=== PATIENT | female | born 1995 | race Caucasian/White ===

== ENCOUNTER 2019-02-04 05:35 | Emergency (ER) | payer OTHER ==
[~2019-02-04] VITALS: Ht 154.9 cm; Wt 60.9 kg
--- NOTE | 2019-02-04 05:53 | NUR ---
assessment made. PA at bedside.
[2019-02-04] MEDS ORDERED: KETOROLAC 30 MG/1 ML IM ONE (06:00)
[2019-02-04] MEDS ORDERED: KETOROLAC 30 MG/1 ML ONE (06:03)
--- NOTE | 2019-02-04 06:13 | NUR ---
back from x ray. medicated for pain. awaiting results.
[2019-02-04 06:30] LABS: MEAN CORPUSCULAR HEMOGLOBIN 32.8 pg (27.0-34.8); MEAN CORPUSCULAR HGB CONC 33.1 g/dL (32.4-35.8); MEAN CORPUSCULAR VOLUME 98.9 fL (80-100); MEAN PLATELET VOLUME 7.6 fL (7.4-10.4); PLATELET COUNT 164 x10^3/uL (130-400); RED BLOOD COUNT 4.13 x10^6/uL (3.82-5.3); RED CELL DISTRIBUTION WIDTH 14.4 % (9.6-15.2)
--- NOTE | 2019-02-04 06:51 | NUR ---
report to EZIO Gorman.
--- NOTE | 2019-02-04 06:52 | NUR ---
REPORT RECEIVED FROM EZIO ACOSTA.
[2019-02-04 06:54] LABS: RAPID INFLUENZA A Negative (Negative); RAPID INFLUENZA B Negative (Negative)
[2019-02-04 07:09] LABS: MD YES
[2019-02-04 07:15] LABS: BAND#(MANUAL) 0.43 x10^3/uL; BANDS%(MANUAL) 7 % (0-7); BASOS#(MANUAL) 0.06 x10^3/uL (0-0.1); BASOS% (MANUAL) 1 % (0-1); MONOS#(MANUAL) 0.43 x10^3/uL (0.3-2.7); MONOS% (MANUAL) 7 % (2-9); SEGS% (MANUAL) 36 % (42-75)
[2019-02-04 07:16] LABS: <PLATELET ESTIMATE> ADEQUATE; <PLT MORPHOLOGY> NORMAL PLT MORPH; <RBC MORPHOLOGY> NORMAL
[2019-02-04 07:26] LABS: LYMPH#(MANUAL) 1.95 x10^3/uL (1-3.4); LYMPHS% (MANUAL) 32 % (22-44); REACTIVE LYMPHS # (MANUAL) 1.04 x10^3/uL (0-0); REACTIVE LYMPHS % (MANUAL) 17 % (0-0)
[2019-02-04 07:46] VITALS: BP 129/84
--- NOTE | 2019-02-04 07:46 | NUR ---
PT RESTING ON CARRIE. RICH. VSS. AWARE OF POC. DENIES NEEDS.
--- NOTE | 2019-02-04 08:43 | NUR ---
PA AT BEDSIDE UPDATING PT ON POC.
== END 2019-02-04 08:59 | disposition home or self-care (01) ==
LOC: ED 06:26
DX: B27.00 Gammaherpesviral mononucleosis without complication (principal)
CPT/HCPCS: 36415; 71046; 85025; 86308; 87400; 93005; 96372; 99284; J1885

== ENCOUNTER 2019-02-07 07:52 | Emergency (ER) | payer OTHER ==
[~2019-02-07] VITALS: Ht 154.9 cm; Wt 59.9 kg
[2019-02-07 07:55] VITALS: BP 117/77
--- NOTE | 2019-02-07 07:58 | NUR ---
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 PATIENT AMBUALTED TO ROOM WITH A STEADY GAIT.
--- NOTE | 2019-02-07 08:06 | NUR ---
PT HAS CO SORE THROAT, COUGHING, AND SNEEZING. PT STATES SHE WAS DIAGNOSED W MONO ON TUESDAY. PT ALSO STATES SHE THINKS HER EYES ARE YELLOW AND URINE IS DARKER EVEN THOUGH SHE DRINKS WATER ALOT. PA AT BEDSIDE. PT IS NOT IN ANY DISTRESS.
[2019-02-07 08:41] LABS: MD YES; MEAN CORPUSCULAR HEMOGLOBIN 32.2 pg (27.0-34.8); MEAN CORPUSCULAR HGB CONC 33.2 g/dL (32.4-35.8); MEAN CORPUSCULAR VOLUME 96.9 fL (80-100); MEAN PLATELET VOLUME 7.1 fL (7.4-10.4); PLATELET COUNT 207 x10^3/uL (130-400); RED BLOOD COUNT 4.14 x10^6/uL (3.82-5.3); RED CELL DISTRIBUTION WIDTH 14.1 % (9.6-15.2)
[2019-02-07 08:47] LABS: HCG UR SG 1.021 (1.003-1.030); MICROSCOPIC INDICATED
--- NOTE | 2019-02-07 08:49 | NUR ---
REPORT FROM EZIO ABRAHAM
[2019-02-07 08:52] LABS: ALANINE AMINOTRANSFERASE 415 U/L (12-78); ALBUMIN 3.3 g/dL (3.4-5.0); ANION GAP 8 mmol/L (5-15); CALCIUM 8.4 mg/dL (8.5-10.1); CHLORIDE 110 mmol/L (98-107); CREATININE 0.74 mg/dL (0.55-1.02)
[2019-02-07 08:54] LABS: ALKALINE PHOSPHATASE 221 U/L (45-117); BILIRUBIN,TOTAL 2.7 mg/dL (0.2-1.0); TOTAL PROTEIN 6.9 g/dL (6.4-8.2)
[2019-02-07 08:57] LABS: <PLATELET ESTIMATE> ADEQUATE; <PLT MORPHOLOGY> NORMAL PLT MORPH; BAND#(MANUAL) 0.28 x10^3/uL; BANDS%(MANUAL) 2 % (0-7); BASOS#(MANUAL) 0.14 x10^3/uL (0-0.1); BASOS% (MANUAL) 1 % (0-1); LYMPH#(MANUAL) 4.83 x10^3/uL (1-3.4); LYMPHS% (MANUAL) 35 % (22-44); MONOS#(MANUAL) 1.24 x10^3/uL (0.3-2.7); MONOS% (MANUAL) 9 % (2-9); REACTIVE LYMPHS # (MANUAL) 2.62 x10^3/uL (0-0); REACTIVE LYMPHS % (MANUAL) 19 % (0-0); SEG#(MANUAL) 4.69 x10^3/uL (1.8-6.8); SEGS% (MANUAL) 34 % (42-75)
[2019-02-07 08:58] LABS: <RBC MORPHOLOGY> NORMAL
[2019-02-07 08:59] LABS: CULTURE INDICATED? YES
== END 2019-02-07 13:06 | disposition home or self-care (01) ==
LOC: ED 08:06
DX: B34.9 Viral infection, unspecified (principal); B27.00 Gammaherpesviral mononucleosis without complication; R94.5 Abnormal results of liver function studies; R79.0 Abnormal level of blood mineral
CPT/HCPCS: 36415; 76700; 80053; 81001; 81025; 85025; 87086; 99284